=== PATIENT | female | born 1955 | race African-American/Black ===

== ENCOUNTER 2021-03-29 11:25 | Inpatient (IN) | payer OTHER ==
[~2021-03-29] VITALS: Ht 177.8 cm; Wt 96.5 kg
[2021-03-29] MEDS ORDERED: SODIUM CHLORIDE 0.9% 500 ML IV ONE (13:15)
[2021-03-29 13:23] LABS: Urine Bacteria MOD /hpf (None Seen); Urine Blood 3+ /uL (Negative); Urine Specific Gravity 1.015 (1.001-1.035); Urine WBC 1596 /hpf (0 - 5)
[2021-03-29] MEDS ORDERED: ONDANSETRON HCL 4 MG/2 ML VIAL IV ONE (13:30)
[2021-03-29] MEDS ORDERED: MORPHINE SULF INJ 2 MG/ML SYRINGE 1ML IV ONE ×2 (13:30→15:30)
[2021-03-29 13:55] LABS: Hematocrit 41.4 % (36.0-46.0); Hemoglobin 13.7 g/dL (12.2-16.2); Mean Corpuscular Hemoglobin 31.1 pg (28.0-32.0); Mean Corpuscular Hgb Conc. 33.2 g/dL (32.0-36.0); Mean Corpuscular Volume 93.7 fL (80.0-100.0); Platelet Count (auto) 330 10^3/uL (140-450); Red Blood Cells 4.42 10^6/uL (4.0-5.20); Red Cell Distribution Width 13.6 % (11.8-14.3); White Blood Cell 17.7 10^3/uL (4.4-10.8)
[2021-03-29 13:58] LABS: Basophils % (manual) 0 (0.0-2.0); Blast Cells 0; Eosinophils % (manual) 0 (0-7); Metamyelocytes % 0; Myelocytes % 0; Promyelocytes % 0; Reactive Lymphocytes 0
[2021-03-29 14:07] LABS: Albumin 3.6 g/dL (3.4-5.0); Calcium 8.9 mg/dL (8.5-10.1); Potassium 3.8 mmol/L (3.5-5.1)
[2021-03-29 14:11] LABS: BUN/Creatinine Ratio 13.6; Bilirubin, Total 0.9 mg/dL (0.2-1.0); Total Protein 7.5 g/dL (6.4-8.2)
[2021-03-29 14:13] LABS: Band Neutrophils % (manual) 3; Lymphocytes % (manual) 4 (10.0-50.0); Monocytes % (manual) 5 (0-12)
[2021-03-29] MEDS ORDERED: cefTRIAXone 1GM/50ML D5W 50 ML IV ONE (14:15)
[2021-03-29] MEDS ORDERED: MORPHINE SULF INJ 2 MG/ML SYRINGE 1ML IV PRN (15:30)
[2021-03-29] MEDS ORDERED: PIPERACILLIN-TAZOB 3.375GM 100 ML IV ONE (15:30)
[2021-03-29] MEDS ORDERED: NITROGLYCERIN 0.4 MG SL TAB SL PRN (15:30)
[2021-03-29] MEDS ORDERED: SODIUM CHLORIDE 0.9% 1,000 ML IV ONE (15:30)
[2021-03-29] MEDS ORDERED: traMADol HCL 50 MG TAB PO PRN (15:45)
[2021-03-29] MEDS ORDERED: TAMSULOSIN HYDROCHLORIDE 0.4 MG CAP PO ONE (15:45)
[2021-03-29] MEDS ORDERED: PROMETHAZINE HCL 25 MG/ML 1ML IV PRN (15:45)
[2021-03-29] MEDS: SODIUM CHLORIDE 0.9% 1,000 ML IV SCH (16:08)
[2021-03-29] MEDS: ENOXAPARIN SOD 40 MG/0.4 ML SYRINGE SC SCH (16:08)
[2021-03-29] MEDS: BUDESONIDE (INHALATION) 0.5 MG/2 ML NEB NEB SCH (17:52)
[2021-03-29] MEDS: ALBUTEROL SULF 2.5 MG/0.5ML(0.5%) NEB SOLN NEB PRN (17:53)
[2021-03-29] MEDS: MORPHINE SULF INJ 2 MG/ML SYRINGE 1ML IV PRN (18:39)
[2021-03-29 19:02] VITALS: BP 142/79
[2021-03-29 19:20] VITALS: BP 142/79
[2021-03-29 22:00] VITALS: BP 125/64
[2021-03-29] MEDS ORDERED: ALBU108A5 IN (22:01)
[2021-03-29] MEDS ORDERED: DOCU100T15 PO (22:01)
[2021-03-29] MEDS ORDERED: BACL10TA PO (22:01)
[2021-03-29] MEDS ORDERED: TIOTCAP IN (22:01)
[2021-03-29] MEDS ORDERED: HYDR-4902 PO (22:01)
[2021-03-29] MEDS ORDERED: TAMS0.4C36 PO (22:01)
[2021-03-29] MEDS ORDERED: BUDE1AER5 IN (22:01)
[2021-03-29] MEDS ORDERED: MELO1TAB73 PO (22:01)
[2021-03-29] MEDS ORDERED: DULO60CA PO (22:01)
[2021-03-29] MEDS: PIPERACILLIN-TAZOB 3.375GM 100 ML IV SCH (22:36)
[2021-03-29] MEDS: FAMOTIDINE 20 MG TAB PO SCH (22:37)
[2021-03-29] MEDS: TEMAZEPAM 15 MG CAP PO PRN (23:21)
[2021-03-30] MEDS: SODIUM CHLORIDE 0.9% 1,000 ML IV SCH ×3 (01:35→21:45)
[2021-03-30 05:00] VITALS: BP 139/69
[2021-03-30] MEDS: PIPERACILLIN-TAZOB 3.375GM 100 ML IV SCH ×3 (05:27→22:14)
[2021-03-30 05:34] LABS: Basophils # (auto) 0.1 10 ^3/uL (0-0.2); Basophils % (auto) 0.4 % (0.0-2.0); Eosinophils # (auto) 0.1 10 ^3/uL (0-0.8); Eosinophils % (auto) 0.3 % (0.0-7.0); Hematocrit 37.3 % (36.0-46.0); Hemoglobin 12.8 g/dL (12.2-16.2); Lymphocytes # (auto) 1.5 10 ^3/uL (0.4-5.4); Lymphocytes % (auto) 9.2 % (10.0-50.0); Mean Corpuscular Hgb Conc. 34.2 g/dL (32.0-36.0); Mean Corpuscular Volume 93.6 fL (80.0-100.0); Monocytes # (auto) 1.4 10 ^3/uL (0-1.3); Monocytes % (auto) 8.5 % (0.0-12.0); Neutrophils % (auto) 81.6 % (37.0-80.0); Platelet Count (auto) 286 10^3/uL (140-450); Red Blood Cells 3.98 10^6/uL (4.0-5.20); Red Cell Distribution Width 14.2 % (11.8-14.3)
[2021-03-30 05:52] LABS: Potassium 3.4 mmol/L (3.5-5.1)
[2021-03-30 06:01] LABS: BUN/Creatinine Ratio 16.5; Bilirubin, Total 1.5 mg/dL (0.2-1.0); Calcium 8.5 mg/dL (8.5-10.1); Total Protein 6.6 g/dL (6.4-8.2)
[2021-03-30 08:49] VITALS: BP 109/69
[2021-03-30] MEDS: BUDESONIDE (INHALATION) 0.5 MG/2 ML NEB NEB SCH ×2 (09:16→19:03)
[2021-03-30] MEDS: FAMOTIDINE 20 MG TAB PO SCH ×2 (09:28→22:15)
[2021-03-30] MEDS: ENOXAPARIN SOD 40 MG/0.4 ML SYRINGE SC SCH (09:28)
[2021-03-30 12:49] VITALS: BP 120/72
[2021-03-30] MEDS ORDERED: HYDROcodone-ACET 5/325MG TAB PO PRN (13:30)
[2021-03-30] MEDS ORDERED: BACLOFEN 10 MG TAB PO PRN (13:30)
[2021-03-30] MEDS ORDERED: POTASSIUM EFFERVESENT TAB 25 MEQ PO ONE (13:30)
[2021-03-30 16:50] VITALS: BP 124/62
[2021-03-30] MEDS: TAMSULOSIN HYDROCHLORIDE 0.4 MG CAP PO SCH (17:55)
[2021-03-30] MEDS: MORPHINE SULF INJ 2 MG/ML SYRINGE 1ML IV PRN (20:20)
[2021-03-30 22:00] VITALS: BP 125/63
[2021-03-30] MEDS: DOCUSATE SOD 100 MG CAP PO SCH (22:14)
[2021-03-31] MEDS: PIPERACILLIN-TAZOB 3.375GM 100 ML IV SCH (04:57)
[2021-03-31 05:00] VITALS: BP 107/57
[2021-03-31] MEDS: ACETAMINOPHEN 500 MG TAB PO PRN ×3 (05:30→23:15)
[2021-03-31 06:09] LABS: Basophils # (auto) 0.1 10 ^3/uL (0-0.2); Basophils % (auto) 0.6 % (0.0-2.0); Eosinophils # (auto) 0.3 10 ^3/uL (0-0.8); Eosinophils % (auto) 2.3 % (0.0-7.0); Hematocrit 35.6 % (36.0-46.0); Hemoglobin 12.3 g/dL (12.2-16.2); Lymphocytes % (auto) 17.8 % (10.0-50.0); Mean Corpuscular Hemoglobin 32.3 pg (28.0-32.0); Mean Corpuscular Hgb Conc. 34.4 g/dL (32.0-36.0); Mean Corpuscular Volume 93.9 fL (80.0-100.0); Monocytes # (auto) 1.1 10 ^3/uL (0-1.3); Monocytes % (auto) 9.4 % (0.0-12.0); Neutrophils % (auto) 69.9 % (37.0-80.0); Nucleated Red Blood Cells % 0.1 %; Platelet Count (auto) 265 10^3/uL (140-450); Red Blood Cells 3.79 10^6/uL (4.0-5.20); Red Cell Distribution Width 13.9 % (11.8-14.3); White Blood Cell 11.4 10^3/uL (4.4-10.8)
[2021-03-31 06:25] LABS: INR 1.02 (0.9-1.15)
[2021-03-31 06:28] LABS: Potassium 3.5 mmol/L (3.5-5.1)
[2021-03-31 06:50] LABS: Albumin 2.8 g/dL (3.4-5.0); BUN/Creatinine Ratio 14.3; Bilirubin, Total 1.4 mg/dL (0.2-1.0); Calcium 8.7 mg/dL (8.5-10.1); Total Protein 6.5 g/dL (6.4-8.2)
[2021-03-31] MEDS: ALBUTEROL SULF 2.5 MG/0.5ML(0.5%) NEB SOLN NEB PRN ×2 (07:06→18:23)
[2021-03-31] MEDS: BUDESONIDE (INHALATION) 0.5 MG/2 ML NEB NEB SCH ×2 (07:06→18:23)
[2021-03-31] MEDS: SODIUM CHLORIDE 0.9% 1,000 ML IV SCH ×2 (07:45→17:54)
[2021-03-31] MEDS: MORPHINE SULF INJ 2 MG/ML SYRINGE 1ML IV PRN (08:56)
[2021-03-31] MEDS: DOCUSATE SOD 100 MG CAP PO SCH ×2 (09:01→22:04)
[2021-03-31] MEDS: ENOXAPARIN SOD 40 MG/0.4 ML SYRINGE SC SCH (09:01)
[2021-03-31] MEDS: DULoxetine HCL 30 MG CAP PO SCH (09:01)
[2021-03-31] MEDS: FAMOTIDINE 20 MG TAB PO SCH ×2 (09:01→22:04)
[2021-03-31 09:14] VITALS: BP 115/68
[2021-03-31 12:37] VITALS: BP 123/76
[2021-03-31] MEDS ORDERED: levoFLOXacin 500MG 100 ML IV ONE (12:45)
[2021-03-31 16:19] VITALS: BP 112/64
[2021-03-31] MEDS: Ensure HIGH Protein Chocolate 8oz Bottle PO SCH (18:00)
[2021-03-31] MEDS: TAMSULOSIN HYDROCHLORIDE 0.4 MG CAP PO SCH (18:40)
[2021-03-31 20:00] VITALS: BP 117/72
[2021-03-31 22:00] VITALS: BP 117/72
[2021-03-31] MEDS: TEMAZEPAM 15 MG CAP PO PRN (23:14)
[2021-04-01] MEDS: SODIUM CHLORIDE 0.9% 1,000 ML IV SCH ×2 (01:52→13:45)
[2021-04-01 05:00] VITALS: BP 105/55
[2021-04-01 06:38] LABS: Basophils # (auto) 0 10 ^3/uL (0-0.2); Basophils % (auto) 0.5 % (0.0-2.0); Eosinophils # (auto) 0.3 10 ^3/uL (0-0.8); Eosinophils % (auto) 4.2 % (0.0-7.0); Hematocrit 35.7 % (36.0-46.0); Hemoglobin 11.7 g/dL (12.2-16.2); Lymphocytes # (auto) 2.3 10 ^3/uL (0.4-5.4); Lymphocytes % (auto) 31.2 % (10.0-50.0); Mean Corpuscular Hemoglobin 31.1 pg (28.0-32.0); Mean Corpuscular Hgb Conc. 32.8 g/dL (32.0-36.0); Mean Corpuscular Volume 94.7 fL (80.0-100.0); Monocytes # (auto) 0.7 10 ^3/uL (0-1.3); Neutrophils # (auto) 4.1 10 ^3/uL (1.6-8.6); Neutrophils % (auto) 55.1 % (37.0-80.0); Nucleated Red Blood Cells % 0.1 %; Platelet Count (auto) 269 10^3/uL (140-450); Red Blood Cells 3.77 10^6/uL (4.0-5.20); Red Cell Distribution Width 13.8 % (11.8-14.3); White Blood Cell 7.5 10^3/uL (4.4-10.8)
[2021-04-01 06:45] LABS: BUN/Creatinine Ratio 17.2; Calcium 8.1 mg/dL (8.5-10.1); Potassium 3.8 mmol/L (3.5-5.1)
[2021-04-01] MEDS: BUDESONIDE (INHALATION) 0.5 MG/2 ML NEB NEB SCH (07:28)
[2021-04-01 08:37] VITALS: BP 112/57
[2021-04-01] MEDS: Ensure HIGH Protein Chocolate 8oz Bottle PO SCH ×2 (08:46→13:46)
[2021-04-01] MEDS: ENOXAPARIN SOD 40 MG/0.4 ML SYRINGE SC SCH (10:00)
[2021-04-01] MEDS ORDERED: levoFLOXacin 500MG 100 ML IV SCH (10:00)
[2021-04-01] MEDS: DULoxetine HCL 30 MG CAP PO SCH (10:23)
[2021-04-01] MEDS: FAMOTIDINE 20 MG TAB PO SCH (10:23)
[2021-04-01] MEDS: DOCUSATE SOD 100 MG CAP PO SCH (10:23)
[2021-04-01 12:34] VITALS: BP 127/72
[2021-04-01] MEDS ORDERED: LEVO500T31 PO (15:58)
[2021-04-01] MEDS: ACETAMINOPHEN 500 MG TAB PO PRN (16:19)
[2021-04-01 16:32] VITALS: BP 146/86
[2021-04-01 17:06] VITALS: BP 146/86
== END 2021-04-01 18:07 | disposition home or self-care (01) | DRG 872 ==
LOC: ER 11:25 → TELE 15:19 → TELE-WESTW 18:34
PROVIDERS: ADMIT Internal Medicine; ATTEND Internal Medicine
PROC: 5A09357 Assistance with Respiratory Ventilation, Less than 24 Consecutive Hours, Continuous Positive Airway Pressure (ICD-10-PCS; principal; 2021-03-30)
PROC: 5A09357 Assistance with Respiratory Ventilation, Less than 24 Consecutive Hours, Continuous Positive Airway Pressure (ICD-10-PCS; 2021-03-31)
PROC: 5A09357 Assistance with Respiratory Ventilation, Less than 24 Consecutive Hours, Continuous Positive Airway Pressure (ICD-10-PCS; 2021-04-01)
DX: A41.52 Sepsis due to Pseudomonas (principal); N13.6 Pyonephrosis; J96.10 Chronic respiratory failure, unspecified whether with hypoxia or hypercapnia; Z20.822 Contact with and (suspected) exposure to COVID-19; E88.09 Other disorders of plasma-protein metabolism, not elsewhere classified; J44.9 Chronic obstructive pulmonary disease, unspecified; E87.6 Hypokalemia; E66.9 Obesity, unspecified; R73.9 Hyperglycemia, unspecified; I10 Essential (primary) hypertension; Z82.49 Family history of ischemic heart disease and other diseases of the circulatory system; Z85.07 Personal history of malignant neoplasm of pancreas; Z86.73 Personal history of transient ischemic attack (TIA), and cerebral infarction without residual deficits; Z87.442 Personal history of urinary calculi; Z87.891 Personal history of nicotine dependence; Z79.899 Other long term (current) drug therapy; Z68.30 Body mass index [BMI] 30.0-30.9, adult
CPT/HCPCS: 36415; 71045; 74176; 80048; 80053; 81001; 83036; 83690; 84443; 85007; 85025; 85027; 85610; 87040; 87081; 87086; 87088; 87186; 87426; 93005; 94640; 94660; 96361; 96365; 96367; 96375; 96376; G0378; J0696; J1956; J2405; J2543